=== PATIENT | male | born 1995 | race Caucasian/White ===

== ENCOUNTER 2018-02-20 10:00 | Emergency (ER) | payer OTHER ==
[~2018-02-20] VITALS: Ht 167.6 cm; Wt 54.4 kg
[2018-02-20 10:05] VITALS: Ht 167.6 cm; Wt 54.4 kg
[2018-02-20 10:29] LABS: BASOPHIL % 0.3 % (0-2); PLATELET COUNT 269 x10^3mcL (130-400); RED CELL DISTRIBUTION WIDTH 12.8 % (11.5-14.5)
[2018-02-20 10:35] LABS: CALCIUM 8.1 mg/dL (8.5-10.1); CARBON DIOXIDE 27.1 mmol/L (21-32); CHLORIDE SERUM 105 mmol/L (98-107); CREATININE SERUM 0.9 mg/dL (0.7-1.3); GFR1 > 60 mL/min; GLUCOSE SERUM 163 mg/dL (74-106); POTASSIUM SERUM 4.3 mmol/L (3.5-5.1); SODIUM SERUM 142 mmol/L (136-145)
[2018-02-20 10:39] LABS: ALKALINE PHOSPHATASE 110 U/L (46-116); ALT/SGPT 28 U/L (16-63); AST/SGOT 33 U/L (15-37); BILIRUBIN TOTAL 0.3 mg/dL (0.20-1.00); TOTAL PROTEIN, SERUM 7.2 g/dL (6.4-8.2)
[2018-02-20 11:27] LABS: AMPHETAMINE QUAL UR NONE DETECTED (See below)
[2018-02-20 13:48] VITALS: BP 134/56
== END 2018-02-20 14:30 | disposition home or self-care (01) ==
LOC: ED 10:00
PROVIDERS: Emergency Medicine
DX: T42.4X1A Poisoning by benzodiazepines, accidental (unintentional), initial encounter (principal); Y92.89 Other specified places as the place of occurrence of the external cause
CPT/HCPCS: G0480; J7030

== ENCOUNTER 2018-03-20 10:21 | Emergency (ER) | payer OTHER ==
[~2018-03-20] VITALS: Ht 167.6 cm; Wt 55.8 kg
[2018-03-20 10:27] VITALS: Ht 167.6 cm; Wt 55.8 kg
[2018-03-20 11:15] LABS: BASOPHIL % 0.4 % (0-2); PLATELET COUNT 281 x10^3mcL (130-400); RED CELL DISTRIBUTION WIDTH 12.9 % (11.5-14.5)
[2018-03-20 11:20] LABS: CALCIUM 8.7 mg/dL (8.5-10.1); CARBON DIOXIDE 27.2 mmol/L (21-32); CHLORIDE SERUM 105 mmol/L (98-107); CREATININE SERUM 0.9 mg/dL (0.7-1.3); GFR1 > 60 mL/min; GLUCOSE SERUM 86 mg/dL (74-106); POTASSIUM SERUM 3.5 mmol/L (3.5-5.1); SODIUM SERUM 137 mmol/L (136-145)
[2018-03-20 13:09] VITALS: BP 125/78
== END 2018-03-20 13:10 | disposition home or self-care (01) ==
LOC: ED 10:21
PROVIDERS: Emergency Medicine
DX: M54.10 Radiculopathy, site unspecified (principal); M25.551 Pain in right hip
CPT/HCPCS: 36415; J1885; Q0092

== ENCOUNTER 2018-10-11 21:37 | Emergency (ER) | payer OTHER ==
[~2018-10-11] VITALS: Ht 167.6 cm; Wt 59.0 kg
[2018-10-11 21:44] VITALS: Ht 167.6 cm; Wt 59.0 kg
[2018-10-12 01:05] VITALS: BP 125/66
== END 2018-10-12 01:05 | disposition home or self-care (01) ==
LOC: ED 21:37
DX: T40.601A Poisoning by unspecified narcotics, accidental (unintentional), initial encounter (principal); Y92.89 Other specified places as the place of occurrence of the external cause
CPT/HCPCS: J1885; J2310; J2405

== ENCOUNTER 2018-11-23 21:39 | Emergency (ER) | payer OTHER ==
[~2018-11-23] VITALS: Ht 167.6 cm; Wt 52.2 kg
[2018-11-23 21:45] VITALS: Ht 167.6 cm; Wt 52.2 kg
[2018-11-23 22:40] LABS: CALCIUM 8.5 mg/dL (8.5-10.1); CARBON DIOXIDE 28.2 mmol/L (21-32); CHLORIDE SERUM 104 mmol/L (98-107); CREATININE SERUM 0.9 mg/dL (0.7-1.3); GFR1 > 60 mL/min; GLUCOSE SERUM 102 mg/dL (74-106); POTASSIUM SERUM 3.6 mmol/L (3.5-5.1); SODIUM SERUM 141 mmol/L (136-145)
[2018-11-23 22:45] LABS: ALBUMIN 4.3 g/dL (3.4-5.0); ALKALINE PHOSPHATASE 97 U/L (46-116); ALT/SGPT 25 U/L (16-63); AST/SGOT 23 U/L (15-37); BILIRUBIN TOTAL 0.33 mg/dL (0.20-1.00); TOTAL PROTEIN, SERUM 7.5 g/dL (6.4-8.2)
[2018-11-23 22:52] VITALS: BP 119/70
== END 2018-11-23 23:53 | disposition home or self-care (01) ==
LOC: ED 21:39
PROVIDERS: Specialist
DX: F10.129 Alcohol abuse with intoxication, unspecified (principal)
CPT/HCPCS: 36415; G0480; J7030

== ENCOUNTER 2019-01-09 12:10 | Emergency (ER) | payer OTHER ==
[~2019-01-09] VITALS: Ht 167.6 cm; Wt 58.5 kg
[2019-01-09 12:13] VITALS: BP 140/81; Ht 167.6 cm; Wt 58.5 kg
== END 2019-01-09 14:18 | disposition home or self-care (01) ==
LOC: ED 12:10
DX: S92.311A Displaced fracture of first metatarsal bone, right foot, initial encounter for closed fracture (principal); X58.XXXA Exposure to other specified factors, initial encounter; Y93.89 Activity, other specified; Y92.89 Other specified places as the place of occurrence of the external cause; Y99.8 Other external cause status
CPT/HCPCS: J2001; Q0092